=== PATIENT | male | born 1940 | race Caucasian/White ===

== ENCOUNTER 2024-01-12 01:06 | Emergency (ER) | payer MEDICARE, OTHER ==
[~2024-01-12] VITALS: Ht 167.6 cm; Wt 71.7 kg
[2024-01-12 01:12] VITALS: BP 161/88; TEMP 98.1
[2024-01-12] MEDS: DIATR MEGLU/DIATRIZOATE SODIUM 120 ML BOTTLE (GASTROGRAPHIN) PO ONE (01:30)
[2024-01-12] MEDS ORDERED: DIATR MEGLU/DIATRIZOATE SODIUM 30 ML BOTTLE (GASTROGRAPHIN) ONE (01:41)
[2024-01-12 03:58] VITALS: O2SAT 98
== END 2024-01-12 03:58 ==
LOC: ER 01:10
DX: K94.23 Gastrostomy malfunction (principal); F03.90 Unspecified dementia, unspecified severity, without behavioral disturbance, psychotic disturbance, mood disturbance, and anxiety; I10 Essential (primary) hypertension; N40.0 Benign prostatic hyperplasia without lower urinary tract symptoms; F32.A Depression, unspecified; Z87.440 Personal history of urinary (tract) infections; Z86.79 Personal history of other diseases of the circulatory system; Y84.8 Other medical procedures as the cause of abnormal reaction of the patient, or of later complication, without mention of misadventure at the time of the procedure; Y82.8 Other medical devices associated with adverse incidents
CPT/HCPCS: 99284; 43762; 74018; Q9963 ×2

== ENCOUNTER 2024-01-12 20:46 | Emergency (ER) | payer MEDICARE, OTHER ==
[~2024-01-12] VITALS: Ht 162.6 cm; Wt 68.0 kg
[2024-01-12 21:23] VITALS: BP 156/76; TEMP 98.2; O2SAT 99
[2024-01-12] MEDS ORDERED: DIATR MEGLU/DIATRIZOATE SODIUM 30 ML BOTTLE (GASTROGRAPHIN) ONE (22:39)
== END 2024-01-13 01:07 ==
LOC: ER 20:56
DX: K94.23 Gastrostomy malfunction (principal); I10 Essential (primary) hypertension; N40.0 Benign prostatic hyperplasia without lower urinary tract symptoms; K44.9 Diaphragmatic hernia without obstruction or gangrene; F03.90 Unspecified dementia, unspecified severity, without behavioral disturbance, psychotic disturbance, mood disturbance, and anxiety; Z87.440 Personal history of urinary (tract) infections
CPT/HCPCS: 99284; 43762; 74018; Q9963